=== PATIENT | female | born 1995 | race Caucasian/White ===

== ENCOUNTER 2016-10-20 13:09 | Emergency (ER) | payer OTHER ==
[~2016-10-20] VITALS: Ht 160 cm; Wt 58.3 kg
[2016-10-20] MEDS ORDERED: ZOLOFT50 MG PO (13:16)
[2016-10-20] MEDS ORDERED: MOTRIN600 MG PO (17:04)
[2016-10-20 17:46] VITALS: BP 104/68
== END 2016-10-20 17:30 | disposition home or self-care (01) ==
LOC: EME 13:09 → EDBD 13:09 → EME 17:30
DX: R51 Headache (principal); M54.2 Cervicalgia; M54.6 Pain in thoracic spine; M25.562 Pain in left knee; V49.50XA Passenger injured in collision with unspecified motor vehicles in traffic accident, initial encounter
CPT/HCPCS: 72070; 72125; 99281; 99284